=== PATIENT | female | born 1940 | race Caucasian/White ===

== ENCOUNTER 2018-08-28 11:05 | Inpatient (IN) | payer OTHER ==
[~2018-08-28] VITALS: Ht 162.6 cm; Wt 55.8 kg
[~2018-08-28 11:05] MED LIST: ALPRAZOLAM; AMLODIPINE BESY10 MG PO; ASPIR 8181 MG PO; CELEXA; CELEXA20 MG PO; HALOPERIDOL 2 MG2 M1 PO; LISINOPRIL10 MG PO; LOSARTAN-HCTZ1 EAC1 PO; NEURONTIN 300300 M1 PO; NORCO 5-325 TA1 EACH PO; OMEPRAZOLE 20 M20 M1 PO; PREMARIN; TYLENOL325 MG PO; XANAX 0.5 MG0.5 MG PO; Xanax; ZANAFLEX4 MG PO; [UNRECOGNIZED DRUG - REMARK]; [UNRECOGNIZED DRUG - REMARK]
[2018-08-28 11:11] VITALS: BP 208/100
[2018-08-28] MEDS ORDERED: VALIUM5 MG PO (11:25)
[2018-08-28] MEDS ORDERED: METFORMIN HCL500 MG PO (11:28)
[2018-08-28] MEDS ORDERED: XANAX 0.5 MG0.5 MG PO (11:29)
[2018-08-28] MEDS ORDERED: ESTRADIOL 1 MG T1 M1 PO (11:29)
[2018-08-28 11:45] LABS: ABSOLUTE BASOPHILS 0.1 thou/uL (0.0-0.2); ABSOLUTE EOSINOPHILS 0.3 thou/uL (0.0-0.7); ABSOLUTE LYMPHOCYTES 2.6 thou/uL (0.8-5.3); ABSOLUTE MONOCYTES 0.5 thou/uL (0.0-1.2); ABSOLUTE NEUTROPHILS 3.8 thou/uL (1.6-8.1); EOSINOPHILS 3.5 %; HEMATOCRIT 38.9 % (37.0-47.0); HEMOGLOBIN 12.8 gm/dL (12.0-15.0); LYMPHOCYTES 36.6 %; MCH 32.2 pg (26.0-34.0); MCHC 32.8 g/dL (28.0-37.0); MCV 98.1 fL (80.0-100.0); MONOCYTES 6.6 %; MPV 9.3 fl. (7.2-11.1); NUCLEATED RBCS 0 /100WBC; PLATELET COUNT* 270 thou/uL (150-400); POLYS 52.3 %; RBC 3.97 mil/uL (4.20-5.00); WBC 7.2 thou/uL (4.0-11.0)
[2018-08-28 11:56] LABS: ANION GAP 5 mmol/L (7-16); BUN 26 mg/dL (7-18); CHLORIDE 106 mmol/L (98-107); CO2 29 mmol/L (21-32); GLUCOSE 92 mg/dL (70-99); SODIUM 140 mmol/L (136-145)
[2018-08-28 12:00] LABS: APTT 27.9 Seconds (25.0-31.3); INR 0.9; PROTIME 9.7 Seconds (9.20-11.50)
[2018-08-28 12:03] LABS: POTASSIUM 4.5 mmol/L (3.5-5.1)
[2018-08-28 12:07] LABS: ALBUMIN 3.3 g/dL (3.4-5.0); ALKALINE PHOSPHATASE 73 U/L (46-116); LIPASE 166 U/L (73-393); NT-PRO BRAIN NAT PEPTIDE 1334 pg/mL (<300); SGOT 36 U/L (15-37); SGPT 29 U/L (30-65); TOTAL BILIRUBIN 0.3 mg/dL (<0.1-1.0); TOTAL PROTEIN 7.2 g/dL (6.4-8.2); TROPONIN-I LEVEL <0.06 ng/mL (<0.06)
[2018-08-28 14:04] VITALS: BP 179/63
[2018-08-28 15:54] VITALS: BP 202/92
[2018-08-28 19:20] VITALS: BP 175/78
[2018-08-29] VITALS (8 sets, daily range): BP systolic 141–208; BP diastolic 51–86
[2018-08-29 04:55] LABS: HEMOGLOBIN 12.3 gm/dL (12.0-15.0); MCH 31.7 pg (26.0-34.0); MCHC 32.4 g/dL (28.0-37.0); MPV 9.5 fl. (7.2-11.1); RBC 3.87 mil/uL (4.20-5.00); RDW-CV 13.2 % (10.5-14.5); WBC 7.9 thou/uL (4.0-11.0)
[2018-08-29 05:29] LABS: ALBUMIN 3.1 g/dL (3.4-5.0); CALCIUM 9.1 mg/dL (8.5-10.1); MAGNESIUM 1.9 mg/dL (1.8-2.4); POTASSIUM 4.2 mmol/L (3.5-5.1)
[2018-08-29 06:21] LABS: TOTAL BILIRUBIN 0.2 mg/dL (<0.1-1.0); TOTAL PROTEIN 6.3 g/dL (6.4-8.2)
--- NOTE | 2018-08-29 11:02 | EKG ---
[place] [address] ELECTROCARDIOGRAM REPORT Name: RAYMOND OBRIEN Room: [address] ADM IN [facility]#: [id number] Admission: 08/28/18 Attend Phys: Ivan Newberry, Discharge: Date of : 40 Report #: [id number] THIS REPORT FOR: //name// [facility] ED Test Date: 2018-08-28 Test Time: 11:13:19 Pat Name: RAYMOND OBRIEN Department: Room: [facility] Gender: F Weatherization Field Technician: Johanna DELACRUZ : 1940 Requested By: Tiff Jaramillo Order Number: [id number] MD: Man Valverde Measurements Intervals [place] Rate: 41 P: 67 TX: 202 QRS: 18 QRSD: 77 T: 36 QT: 481 QTc: 398 Interpretive Statements Sinus bradycardia septal q waves Supraventricular bigeminy Compared to ECG 07/01/2017 14:26:43 Atrial premature complex(es) now present Electronically Signed On 08-29-2018 11:01:55 CDT by Man Valverde [email or web address] <ELECTRONICALLY SIGNED> By: Man Valverde MD, FACC 08/29/18 1101 1113 1113 Man Valverde MD, FAC /EPI
[2018-08-30] VITALS (8 sets, daily range): BP systolic 130–168; BP diastolic 58–80
[2018-08-30 05:15] LABS: CHOLESTEROL 223 mg/dL (<200); HDL CHOLESTEROL 45 mg/dL (>40); LDL CHOLESTEROL 114 mg/dL (<100); TRIGLYCERIDE 323 mg/dL (<150); VLDL 65 mg/dL (<40)
[2018-08-30 05:23] LABS: SERUM ASSESSMENT CLEAR
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
--- NOTE | 2018-08-30 17:00 | 2DMMODE ---
[place] [address] 2 D/M-MODE ECHOCARDIOGRAM Name: RAYMOND OBRIEN Room: [address] IN [facility]#: [id number] Admission: 08/28/18 Attend Phys: Ivan Willard Discharge: Date of : 40 Date of Service: 08/30/18 1700 Report #: [id number] THIS REPORT FOR: //name// APPROVED REPORT Study performed: 08/30/2018 15:11:44 EXAM: Comprehensive 2D, Doppler, and color-flow Echocardiogram Patient Location: In-Patient Room #: [facility] Status: routine BSA: 1.72 HR: 56 bpm BP: 167/70 mmHg Rhythm: NSR Other Information Study Quality: Good Indications Hypertension/HDD 2D Dimensions IVSd: 8.53 (7-11mm) LVOT Diam: 19.08 (18-24mm) LVDd: 45.46 mm PWd: 8.70 (7-11mm) Ascending Ao: 30.37 (22-36mm) LVDs: 21.51 (25-40mm) Aortic Root: 29.89 mm Volumes Left Atrial Volume (Systole) LA ESV Index: 23.30 mL/m2 Aortic Valve AoV Peak Ed.: 1.41 m/s AO Peak Gr.: 7.97 mmHg LVOT Max P.48 mmHg AO Mean Gr.: 4.15 mmHg LVOT Mean P.74 mmHg LVOT Max V: 1.17 m/s AO V2 VTI: 28.15 cm LVOT Mean V: 0.76 m/s JOSE RAMON (VTI): 2.74 cm2 LVOT V1 VTI: 26.99 cm Mitral Valve E/A Ratio: 0.69 MV Decel. Time: 400.06 ms MV E Max Ed.: 0.46 m/[place] [address] 2 D/M-MODE ECHOCARDIOGRAM Name: RAYMOND OBRIEN Room: [address] IN [facility]#: [id number] Admission: 08/28/18 Attend Phys: Ivan Willard Discharge: Date of : 40 Date of Service: 08/30/18 1700 Report #: [id number] MV PHT: 116.02 ms MVA (PHT): 1.90 cm2 TDI E/Lateral E': 5.75 E/Medial E': 9.20 Medial E' Ed.: 0.05 m/s Lateral E' Ed.: 0.08 m/s Pulmonary Valve PV Peak Ed.: 0.92 m/s PV Peak Gr.: 3.38 mmHg Left Ventricle The left ventricle is normal size. There is normal LV segmental wall motion. There is normal left ventricular wall thickness. Left ventricular systolic function is normal. The left ventricular ejection fraction is within the normal range. LVEF is 55-60%. Grade I - abnormal relaxation pattern. Right Ventricle The right ventricle is normal size. The right ventricular systolic function is normal. Atria The left atrium size is normal. The right atrium size is normal. Aortic Valve Mild aortic valve sclerosis. No aortic regurgitation is present. There is no aortic valvular stenosis. Mitral Valve The mitral valve is normal in structure. Trace mitral regurgitation. No evidence of mitral valve stenosis. Tricuspid Valve The tricuspid valve is normal in structure. Unable to assess PA pressure. Trace tricuspid regurgitation. Pulmonic Valve The pulmonary valve is normal in structure. There is no pulmonic valvular regurgitation. Great Vessels The aortic root is normal in size. IVC is normal in size and collapses >50% [place] [address] 2 D/M-MODE ECHOCARDIOGRAM Name: RAYMOND OBRIEN Room: [address] IN [facility]#: [id number] Admission: 08/28/18 Attend Phys: Ivan Willard Discharge: Date of : 40 Date of Service: 08/30/18 1700 Report #: [id number] Pericardium There is no pericardial effusion. <Conclusion> LVEF is 55-60%. There is normal LV segmental wall motion. Grade I - abnormal relaxation pattern. Mild aortic valve sclerosis. There is no aortic valvular stenosis. No aortic regurgitation is present. Trace mitral regurgitation. <ELECTRONICALLY SIGNED> By: Chris Yanes MD, FACC 08/30/181699 99 99 Chris Yanes MD, FACC /INF
[2018-08-31] VITALS (7 sets, daily range): BP systolic 119–167; BP diastolic 55–75
[2018-09-01] VITALS (7 sets, daily range): BP systolic 140–176; BP diastolic 58–78
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
[2018-09-02 00:34] VITALS: BP 131/50
[2018-09-02 04:14] VITALS: BP 144/76
[2018-09-02 08:00] VITALS: BP 156/71
[2018-09-02 08:10] VITALS: BP 156/71
[2018-09-02 12:00] VITALS: BP 150/68
[2018-09-02] MEDS ORDERED: ASPIR 8181 MG PO (12:52)
[2018-09-02 13:12] VITALS: BP 150/68
--- NOTE | 2018-09-13 12:22 | CON ---
[address] [address] CONSULTATION Name: RAYMOND OBRIEN Room: [address] IN .R.#: [id number] Admission: 08/28/18 Attend Phys: Ivan Newberry, Discharge: 09/02/18 Date of : 40 Report #: [id number] THIS REPORT FOR: //name// CC: Rosemary Newberry MD DATE OF SERVICE: 08/29/2018 REFERRING PHYSICIAN: Ivan Newberry MD REASON FOR CONSULTATION: Dysphagia. IMPRESSION: 1. Dysphagia -- oropharyngeal versus esophageal with the patient having had an abnormal video swallow study earlier this year. 2. Recurrent falls of uncertain etiology. 3. Symptomatic bradycardia with orthostasis. RECOMMENDATIONS: At the present time, we will await the results of the patient's video swallow study. Her Speech Pathology is okay with her getting a barium swallow after a video swallow study that will be helpful for us. If, however, she is not a candidate for barium swallow with regular contrast that was used, she may need to undergo an upper endoscopy the following day. I have discussed the plans with the patient as well and she is agreeable to the same. HISTORY OF PRESENT ILLNESS: The patient is a very pleasant 77-year-old white female who had some issues with weakness and balance, who was admitted to hospital with complaints of orthostasis and multiple falls. Her other problem is shortness of breath. She denies ____ and this is not new for her. She has had previous video swallow studies done in the past which have revealed evidence for probable chronic dysphagia. She denies any worsening dysphagia to meats or salads, but has problems ____ when she eats it. She denies any complaints of any heartburn or indigestion. She denied problems with bowels or bowel frequency. She is referred to us for evaluation of her dysphagia. ALLERGIES: None. MEDICATIONS: Include hydrocodone, amlodipine, lisinopril. She also takes Celexa, Valium, metformin, estradiol, Xanax, Neurontin, Hyzaar, omeprazole. PAST MEDICAL HISTORY: Remarkable for hypertension. She has problems with anxiety, depression, diabetes. She has had [place] [address] CONSULTATION Name: CAMILLERAYMOND Nicole Room: [address]#: [id number] Admission: 08/28/18 Attend Phys: Ivan Newberry, Discharge: 09/02/18 Date of : 40 Report #: [id number] SOCIAL HISTORY: She does smoke, does not drink alcohol. FAMILY HISTORY: Negative. PHYSICAL EXAMINATION: GENERAL: Pleasant 77-year-old elderly female who is awake and alert. CARDIOPULMONARY: Revealed a regular rate and rhythm. LUNGS: Clear. ABDOMEN: Soft and not tender. No rebound or guarding. DISCUSSION: At the present time, the patient's issue seemed more oropharyngeal than anything else. We will await results of her video swallow study and make further recommendations thereafter. <ELECTRONICALLY SIGNED> By: French Bui DO 09/13/18 1222 1735 [id number] Bui DO /nt
== END 2018-09-02 16:55 | disposition home or self-care (01) | DRG 77 ==
LOC: M.ERS 11:05 → M.2W 13:26 → M.TBA-ER 13:26 → M.2W 14:14
PROVIDERS: Internal Medicine Cardiovascular Disease; Personal Emergency Response Attendant; Psychiatry & Neurology Neurology; ADMIT Family Medicine
DX: I67.4 Hypertensive encephalopathy (principal); J96.91 Respiratory failure, unspecified with hypoxia; I16.0 Hypertensive urgency; I70.1 Atherosclerosis of renal artery; I10 Essential (primary) hypertension; I49.9 Cardiac arrhythmia, unspecified; E78.5 Hyperlipidemia, unspecified; E11.40 Type 2 diabetes mellitus with diabetic neuropathy, unspecified; R29.6 Repeated falls; F17.210 Nicotine dependence, cigarettes, uncomplicated; J44.9 Chronic obstructive pulmonary disease, unspecified; N28.1 Cyst of kidney, acquired; R13.12 Dysphagia, oropharyngeal phase; Z90.710 Acquired absence of both cervix and uterus; Z98.49 Cataract extraction status, unspecified eye; Z90.49 Acquired absence of other specified parts of digestive tract; Z82.49 Family history of ischemic heart disease and other diseases of the circulatory system; Z79.899 Other long term (current) drug therapy

== ENCOUNTER 2018-10-20 14:33 | Inpatient (IN) | payer OTHER ==
[~2018-10-20] VITALS: Ht 162.6 cm; Wt 60.3 kg
[~2018-10-20 14:33] MED LIST changes: +ESTRADIOL 1 MG T1 M1 PO; +METFORMIN HCL500 MG PO; +VALIUM5 MG PO
[2018-10-20 14:43] VITALS: BP 154/77
[2018-10-20 15:20] LABS: ABSOLUTE BASOPHILS 0.1 thou/uL (0.0-0.2); ABSOLUTE EOSINOPHILS 0.1 thou/uL (0.0-0.7); ABSOLUTE LYMPHOCYTES 2.7 thou/uL (0.8-5.3); ABSOLUTE MONOCYTES 0.5 thou/uL (0.0-1.2); ABSOLUTE NEUTROPHILS 4.3 thou/uL (1.6-8.1); BASOPHILS 0.9 %; EOSINOPHILS 1.4 %; HEMATOCRIT 41.2 % (37.0-47.0); HEMOGLOBIN 13.9 gm/dL (12.0-15.0); LYMPHOCYTES 34.9 %; MCH 32.1 pg (26.0-34.0); MCHC 33.6 g/dL (28.0-37.0); MCV 95.5 fL (80.0-100.0); MONOCYTES 6.6 %; MPV 8.7 fl. (7.2-11.1); NUCLEATED RBCS 0 /100WBC; PLATELET COUNT* 256 thou/uL (150-400); POLYS 56.2 %; RBC 4.31 mil/uL (4.20-5.00); RDW-CV 12.8 % (10.5-14.5); WBC 7.7 thou/uL (4.0-11.0)
[2018-10-20 15:32] LABS: ANION GAP 11 mmol/L (7-16); BUN 34 mg/dL (7-18); CALCIUM 8.8 mg/dL (8.5-10.1); CHLORIDE 100 mmol/L (98-107); CO2 25 mmol/L (21-32); CREATININE 1.8 mg/dL (0.6-1.3); GLUCOSE 113 mg/dL (70-99); POTASSIUM 3.4 mmol/L (3.5-5.1); SODIUM 136 mmol/L (136-145)
--- NOTE | 2018-10-20 15:37 | NUR ---
AD NOTIFIED UPON PT RETURN FROM CT. PT CONNECTED TO MONITOR
[2018-10-20 15:42] LABS: ALBUMIN 3.7 g/dL (3.4-5.0); ALKALINE PHOSPHATASE 84 U/L (46-116); LIPASE 115 U/L (73-393); NT-PRO BRAIN NAT PEPTIDE 116 pg/mL (<300); SGOT 19 U/L (15-37); SGPT 27 U/L (30-65); TOTAL BILIRUBIN 0.3 mg/dL (<0.1-1.0); TOTAL PROTEIN 7.5 g/dL (6.4-8.2); TROPONIN-I LEVEL <0.06 ng/mL (<0.06)
[2018-10-20 16:11] LABS: URINE BILIRUBIN NEGATIVE (Negative); URINE BLOOD NEGATIVE (Negative); URINE CLARITY CLEAR; URINE COLOR YELLOW; URINE GLUCOSE-RANDOM NEGATIVE (Negative); URINE KETONES NEGATIVE (Negative); URINE LEUKOCYTES-REFLEX NEGATIVE (Negative); URINE NITRITE-REFLEX NEGATIVE (Negative); URINE PROTEIN NEGATIVE (Negative); URINE SPECIFIC GRAVITY 1.015 (1.005-1.030); URINE UROBILINOGEN 0.2 E.U./dl (0.2-1.0)
[2018-10-20 17:12] VITALS: BP 129/75
[2018-10-20 17:30] VITALS: BP 135/78
[2018-10-20 18:18] LABS: APTT 30.3 Seconds (25.0-31.3); PROTIME 10.3 Seconds (9.20-11.50)
[2018-10-20 20:10] VITALS: BP 125/66
[2018-10-21] VITALS (11 sets, daily range): BP systolic 108–140; BP diastolic 39–81
--- NOTE | 2018-10-21 04:47 | NUR ---
PT CARE ASSUMED AT 1930. SAT MAINTAINED IN RA. ALERT AND ORIENTED X4. CALL LIGHT WITHIN REACH AND BED IN LOW POSITION. DENIES ANY CHEST PAIN AND SOB. HOURLY ROUNDING DONE FOR PT SAFETY. PT STATED BACK PAIN, MEDICATION GIVEN PER EMAR.
[2018-10-21 05:10] LABS: HEMATOCRIT 34.7 % (37.0-47.0); MCH 31.9 pg (26.0-34.0); MCHC 33.1 g/dL (28.0-37.0); MCV 96.6 fL (80.0-100.0); MPV 9.4 fl. (7.2-11.1); RBC 3.59 mil/uL (4.20-5.00); RDW-CV 12.6 % (10.5-14.5); WBC 5.8 thou/uL (4.0-11.0)
[2018-10-21 05:22] LABS: HEMOGLOBIN 11.5 gm/dL (12.0-15.0)
[2018-10-21 05:38] LABS: CALCIUM 8.1 mg/dL (8.5-10.1); CREATININE 1.3 mg/dL (0.6-1.3); MAGNESIUM 2.1 mg/dL (1.8-2.4); POTASSIUM 3.9 mmol/L (3.5-5.1)
--- NOTE | 2018-10-21 09:46 | EKG ---
[place] [address] ELECTROCARDIOGRAM REPORT Name: LINGRAYMOND HARDING Nicole Room: [address] ADM IN [facility]#: [id number] Admission: 10/20/18 Attend Phys: Carina Baptiste MD Discharge: Date of : 40 Report #: [id number] THIS REPORT FOR: //name// [facility] ED Test Date: 2018-10-20 Test Time: 15:05:34 Pat Name: RAYMOND OBRIEN Department: Room: [facility] Gender: F Tourist Information Assistant: [facility] [place] 1940 Requested By: Tiff Wall Order Number: [id number] MD: Man Valverde Measurements Intervals [place] Rate: 80 P: PA: QRS: 18 QRSD: 91 T: 60 QT: 410 QTc: 473 Interpretive Statements sinus rhythm with consecutive pac's septal infarct, old Compared to ECG 08/28/2018 11:13:19 Sinus bradycardia no longer present Electronically Signed On 10-21-2018 9:46:30 CNC GRINDER by Man Valverde [email or web address] <ELECTRONICALLY SIGNED> By: Man Valverde MD, [facility] 10/21/18 0946 1505 1505 Man Valverde MD, [facility] /EPI
--- NOTE | 2018-10-21 11:33 | NUR ---
Pt is A&O. Pt resides at home with her dtr and MACKENZIE. Independent with ADLs, continues to clean and drive. Dtr completes the cooking. No DME. No hx of HH or SNF. Cardiology following. Goal is home at [place]. No needs anticipated.
--- NOTE | 2018-10-21 15:45 | NUR ---
ASSUMED PT CARE AT 0730 REPORT RECEIVED FROM NURSE. PT IS AOX4 LYING IN BED. SARRYTHMIA ON THE IMPORT/EXPORT AGENT. IV FLUID INFUISING ORDERED. NO CHEST PAIN AT TIME OF ASSESSMENT. DR JOSEPH HOANG. MANAGER RISK CAME IN NO ORDER RECEIVED. DR MARINELLI PAGED AND COMMUNICATED ABOUT MANAGER RISK VISIT. CAHRT CHECKED. MEDICINES ADMINISTERED ORDERED. WILL CONTINUE TO MONITOR
--- NOTE | 2018-10-21 18:19 | NUR ---
PT LEFT AT 1800 ACCOMPAINED BY DAUGHTER AND NURSING STAFF . SC INSTRUCTION GIVEN, EDUCATION GIVEN. PT STATES UNDERSTANDING.
== END 2018-10-21 17:43 | disposition home or self-care (01) | DRG 308 ==
LOC: M.ERS 14:33 → M.TBA-ER 16:31 → M.2W 16:31 → M.ERS 16:31 → M.2W 17:26
PROVIDERS: Physician Assistant; ADMIT Internal Medicine
DX: I48.91 Unspecified atrial fibrillation (principal); N17.0 Acute kidney failure with tubular necrosis; I10 Essential (primary) hypertension; R25.1 Tremor, unspecified; G62.9 Polyneuropathy, unspecified; Z90.710 Acquired absence of both cervix and uterus; Z87.891 Personal history of nicotine dependence; Z79.82 Long term (current) use of aspirin; Z79.899 Other long term (current) drug therapy; Z86.011 Personal history of benign neoplasm of the brain

== ENCOUNTER 2019-06-22 10:57 | Inpatient (IN) | payer OTHER ==
[~2019-06-22] VITALS: Ht 162.6 cm; Wt 65.3 kg
--- NOTE | ~2019-06-22 | EEG ---
[address] [address] EEG STUDY REPORT Name: CAMILLERAYMOND Nicole Room: [address]#: [id number] Admission: 06/22/19 Attend Phys: Obie Walker Discharge: Date of : 40 Report #: [id number] THIS REPORT FOR: //name// CC: Rosemary Salinas DATE OF SERVICE: 06/23/2019 This patient is being evaluated for the possibility of seizure. EEG was done by placing the electrodes by standard 10-20 system of electrode placement. Both referential and sequential montages were used for recording. Background activity in this patient's EEG is about 10 Hz and 30 microvolts. Muscle artifact is present, but the patient went to sleep, that is associated with bilaterally symmetrical sleep spindle and vertex sharp waves. Photic stimulation was unremarkable. Throughout the record, no active epileptiform activity was noticed. IMPRESSION: This patient's electroencephalogram is unremarkable. By: [id number] [id number] Hidalgo MD /nt
--- NOTE | ~2019-06-22 | CON ---
[facility] [address] [place] [address] CONSULTATION Name: RAYMOND OBRIEN Room: [address] IN ..#: [id number] Admission: 06/22/19 Attend Phys: Obie Walker Discharge: Date of : 40 Report #: [id number] THIS REPORT FOR: //name// CC: Rosemary Salinas DATE OF SERVICE: 06/22/2019 HISTORY OF PRESENT ILLNESS: This patient was evaluated in the Emergency Room and subsequently I saw the patient in the ICU. I discussed the patient with Dr. Leon in the Emergency Room. The patient apparently was doing well yesterday, but then said she cannot talk. She was having some unusual movement of the face. Family indicated that she had spells like this before, but not as severe. She has significant psychiatric problems and she is depressed according to them. REVIEW OF SYSTEMS: Indicate that she has this problem with talking, but she was able to drive. She has a very unusual movement of the face. She takes psychiatric medications. She has trouble with anxiety and depression and that was her relevant 14-point review of system. PAST MEDICAL HISTORY: Positive for depression and anxiety. FAMILY HISTORY: Negative for early age stroke. SOCIAL HISTORY: She does not smoke. PHYSICAL EXAMINATION: The patient's examination was carried out before and now she said her movement is better. Her speech is much improved. She can follow simple command. When distracted, she can move everything. I reviewed the patient's MRI and MRA. MRI does not show any acute changes. She did not cooperate with full MRI testing. She does have a meningioma, but that is stable. IMPRESSION: The patient's symptoms appear to be psychiatric. I will check an EEG to exclude any further pathology, but I will suggest a psychiatric consult in this patient. Her GFR is low and I do not want to proceed with CT angio even if the films are suboptimal on the MRA, but looks like large vessels are open and clinically it looks like psychiatric symptoms. Thank you very much [place] [address] CONSULTATION Name: RAYMOND OBRIEN Room: [address] IN [facility]#: [id number] Admission: 06/22/19 Attend Phys: Obie Walker Discharge: Date of : 40 Report #: [id number] TIME spent about 50 minutes, about half of it counseling and coordinating. By: [id number] Hidalgo MD /nt
[~2019-06-22 10:57] MED LIST changes: +COZAAR 25MG TAB25 MG PO; -LOSARTAN-HCTZ1 EAC1 PO
[2019-06-22 11:14] VITALS: BP 144/100
[2019-06-22 11:27] LABS: ABSOLUTE BASOPHILS 0.1 thou/uL (0.0-0.2); ABSOLUTE EOSINOPHILS 0.3 thou/uL (0.0-0.7); ABSOLUTE LYMPHOCYTES 2.8 thou/uL (0.8-5.3); ABSOLUTE MONOCYTES 0.5 thou/uL (0.0-1.2); ABSOLUTE NEUTROPHILS 4.2 thou/uL (1.6-8.1); BASOPHILS 1.3 %; EOSINOPHILS 3.9 %; HEMATOCRIT 41.3 % (37.0-47.0); HEMOGLOBIN 13.9 gm/dL (12.0-15.0); LYMPHOCYTES 35.8 %; MCH 31.6 pg (26.0-34.0); MCHC 33.7 g/dL (28.0-37.0); MCV 93.5 fL (80.0-100.0); MONOCYTES 6.2 %; MPV 9.1 fl. (7.2-11.1); NUCLEATED RBCS 0 /100WBC; PLATELET COUNT* 329 thou/uL (150-400); POLYS 52.8 %; RBC 4.42 mil/uL (4.20-5.00); RDW-CV 13.4 % (10.5-14.5); WBC 7.9 thou/uL (4.0-11.0)
[2019-06-22 11:34] LABS: ANION GAP 7 mmol/L (7-16); BUN 21 mg/dL (7-18); CALCIUM 9.1 mg/dL (8.5-10.1); CHLORIDE 101 mmol/L (98-107); CO2 31 mmol/L (21-32); CREATININE 1.4 mg/dL (0.6-1.3); GLUCOSE 106 mg/dL (70-99); POTASSIUM 3.2 mmol/L (3.5-5.1); SODIUM 139 mmol/L (136-145)
[2019-06-22 11:36] LABS: PROTIME 10.1 Seconds (9.20-11.50)
[2019-06-22 11:44] LABS: ALBUMIN 3.9 g/dL (3.4-5.0); ALKALINE PHOSPHATASE 103 U/L (46-116); SGOT 19 U/L (15-37); SGPT 21 U/L (30-65); TOTAL BILIRUBIN 0.3 mg/dL (<0.1-1.0); TOTAL PROTEIN 8.3 g/dL (6.4-8.2); TROPONIN-I LEVEL <0.06 ng/mL (<0.06)
[2019-06-22 14:23] VITALS: BP 147/76
[2019-06-22 14:40] LABS: URINE BILIRUBIN NEGATIVE (Negative); URINE BLOOD NEGATIVE (Negative); URINE CLARITY CLEAR; URINE COLOR YELLOW; URINE GLUCOSE-RANDOM NEGATIVE (Negative); URINE KETONES NEGATIVE (Negative); URINE LEUKOCYTES-REFLEX NEGATIVE (Negative); URINE NITRITE-REFLEX NEGATIVE (Negative); URINE PROTEIN NEGATIVE (Negative); URINE SPECIFIC GRAVITY <= 1.005 (1.005-1.030); URINE UROBILINOGEN 0.2 E.U./dl (0.2-1.0)
[2019-06-22 15:20] VITALS: BP 145/76
[2019-06-22 16:00] VITALS: BP 145/65
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
[2019-06-22 19:03] LABS: CREATININE 1.2 mg/dL (0.6-1.3); POTASSIUM 3.4 mmol/L (3.5-5.1)
[2019-06-22 20:00] VITALS: BP 145/56
[2019-06-23] VITALS (7 sets, daily range): BP systolic 145–193; BP diastolic 43–83
--- NOTE | 2019-06-23 05:44 | NUR ---
ASSUMED CARE AT 1910, ON ROOM AIR AND NO CHANGES IN MENTAL STATUS.NO DISTRESS NOTED.STAND BY ASSISTANCE WHEN GOING TO COMMODE.CONTINUE MONITORING AND TOWARDS GOALS.
[2019-06-23 08:36] LABS: HEMATOCRIT 39.4 % (37.0-47.0); MCH 31.8 pg (26.0-34.0); MCV 96.2 fL (80.0-100.0); MPV 10.1 fl. (7.2-11.1); RBC 4.09 mil/uL (4.20-5.00); RDW-CV 13.6 % (10.5-14.5); WBC 5.7 thou/uL (4.0-11.0)
[2019-06-23 08:41] LABS: CALCIUM 8.5 mg/dL (8.5-10.1); POTASSIUM 4.6 mmol/L (3.5-5.1)
--- NOTE | 2019-06-23 12:46 | NUR ---
Pt is A&O. Resides at home with her dtr and son in law. Independent, continues to clean and drive, dtr cooks. No DME. No hx of HH or SNF. Hx of outpt therapy. Goal is home at ga. Pt is tele status
--- NOTE | 2019-06-23 14:55 | NUR ---
I have reviewed the documentation by ADITHYA URRUTIA from TODAY to 06/23/19 and I concur with it. MARI REAGAN
--- NOTE | 2019-06-23 15:00 | NUR ---
PATIENT TRANSFERED TO ROOM 201 VIA WHEELCHAIR IN STABLE CONDITION. ALL BELONGINGS SENT WITH PATIENT. FAMILY NOTIFIED.
--- NOTE | 2019-06-23 15:52 | NUR ---
RECIEVED REPORT FROM PREVIOUS RN AROUND 1530. CONCUR WITH PREVIOUS ASSESSMENT. PT TRANSFERRED TO ROOM 201. ORIENTED TO ROOM. TELEPSYCH CONSULT INITIATED. NO OTHER CONCERNS AT THIS TIME. CLWR. WCTM.
[2019-06-24] VITALS: BP 180/57
[2019-06-24 04:00] VITALS: BP 166/66
[2019-06-24 04:14] LABS: HEMOGLOBIN 11.2 gm/dL (12.0-15.0); MCH 31.8 pg (26.0-34.0); MCV 96.4 fL (80.0-100.0); MPV 9.9 fl. (7.2-11.1); RBC 3.53 mil/uL (4.20-5.00); RDW-CV 13.5 % (10.5-14.5); WBC 5.9 thou/uL (4.0-11.0)
[2019-06-24 04:27] LABS: CHOLESTEROL 199 mg/dL (<200); HDL CHOLESTEROL 41 mg/dL (>40); LDL CHOLESTEROL 128 mg/dL (<100); TC:HDL 4.9 Ratio (Not establshd); TRIGLYCERIDE 152 mg/dL (<150); VLDL 30 mg/dL (<40)
[2019-06-24 04:46] LABS: SERUM ASSESSMENT CLEAR
[2019-06-24 04:52] LABS: CALCIUM 8.2 mg/dL (8.5-10.1); CREATININE 0.8 mg/dL (0.6-1.3); MAGNESIUM 1.8 mg/dL (1.8-2.4); POTASSIUM 4.4 mmol/L (3.5-5.1); TOTAL BILIRUBIN 0.2 mg/dL (<0.1-1.0); TOTAL PROTEIN 5.9 g/dL (6.4-8.2)
--- NOTE | 2019-06-24 05:34 | NUR ---
ASSUMED PT CARE AT APPROX 1930. PT IS AWAKE AND ORIENTED X4. VSS ON ROOM AIR. STORE CONSULTANT IN PLACE TRACING SR/SA w/ OCCASSIONAL PACs. ASSESSMENT DONE AND CHARTED. PT C/O BACK AND LEG PAIN PARTIALLY RELIEVED BY PAIN MEDS GIVEN PER JAN. PT IS ABLE TO SLEEP MOST OF THE NIGHT. CALL LIGHT WITHIN REACH. HOURLY ROUNDING DONE FOR PT SAFETY.
[2019-06-24 08:10] VITALS: BP 150/108
--- NOTE | 2019-06-24 09:27 | NUR ---
ASSUMED CARE OF PT THIS AM AROUND 0715- MEDICAL SURGERY NURSE IN PLACE ORDERED, TRACING SB- UPON ASSESSMENT PT NOTED TO BE RESTING IN BED, WATCHING TV- PT A&O X4- CONTINENT OF BOWEL AND BLADDER- UP AD-REGI IN ROOM, STEADY GAIT NOTED- LCTA, RESP EVEN AND UN-LABORED- VSS, O2 SAT 94% ON RA- ABD SOFT/ROUND/NON-TENDER, BS X4 QUADS- LAST BM REPORTED THIS AM- IV NOTED TO LEFT FA INTACT- GOOD PO INTAKE NOTED THIS AM WITH BREAKFAST- NIH NOTED AT 0 THIS AM- PT STATES HEADACHE THIS AM, PRN HYDROCODONE NOTED TO HAVE BEEN GIVEN- CALL LIGHT AND PERSONAL BELONGINGS WITH IN REACH- PT MAKES NEEDS KNOWN- ALLNEEDS MET AT THIS TIME-WCTM
[2019-06-24 10:34] VITALS: BP 150/108
[2019-06-24] MEDS ORDERED: ATORVASTATIN CA80 MG PO (11:19)
--- NOTE | 2019-06-24 11:44 | NUR ---
ORDERS RECEIVED FOR OKAY TO D/C TO HOME THIS SHIFT PER - IV TO LEFT FA D/C'D ALONG WITH ORCHARD MANAGER PRIOR TO D/C- D/C EDUCATION/TEACHING/NEEDED FOLLOW UP'S COMMUNICATED WITH VERBAL UNDERSTANDING NOTED PER PT- WRITTEN EDUCATION ALONG WITH SCRIPTS PROVIDED TO PT PRIOR TO D/C- ALL QUESTIONS AND CONCERNS ADDRESSED PRIOR TO D/C- BELONGINGS PACKED AND ACCOUNTED FOR PER PT- PT CURRENTLY DRESSED WITH BELONGINGS AWAITTING RIDE FOR D/C- ALL NEEDS MET AT THIS TIME-WCTM
[2019-06-24 12:00] VITALS: BP 206/61
== END 2019-06-24 12:14 | disposition home or self-care (01) | DRG 69 ==
LOC: M.ERS 10:57 → M.ICU 13:30 → M.TBA-ER 13:30 → M.ICU 15:12 → M.2W 06-23 15:02
PROVIDERS: Family Medicine; Personal Emergency Response Attendant; ADMIT Internal Medicine
DX: G45.9 Transient cerebral ischemic attack, unspecified (principal); N17.0 Acute kidney failure with tubular necrosis; R47.01 Aphasia; E87.6 Hypokalemia; I10 Essential (primary) hypertension; G62.9 Polyneuropathy, unspecified; G25.71 Drug induced akathisia; F32.9 Major depressive disorder, single episode, unspecified; F41.9 Anxiety disorder, unspecified; F17.210 Nicotine dependence, cigarettes, uncomplicated; F43.20 Adjustment disorder, unspecified; D32.9 Benign neoplasm of meninges, unspecified; Z90.710 Acquired absence of both cervix and uterus; Z79.899 Other long term (current) drug therapy

== ENCOUNTER 2020-01-13 07:44 | Inpatient (IN) | payer OTHER ==
[~2020-01-13] VITALS: Ht 160 cm; Wt 65.8 kg
[~2020-01-13 07:44] MED LIST changes: +ATORVASTATIN CA80 MG PO
[2020-01-13 07:54] VITALS: BP 181/56
[2020-01-13 08:41] LABS: ABSOLUTE BASOPHILS 0.1 thou/uL (0.0-0.2); ABSOLUTE LYMPHOCYTES 0.8 thou/uL (0.8-5.3); ABSOLUTE MONOCYTES 0.5 thou/uL (0.0-1.2); ABSOLUTE NEUTROPHILS 6.7 thou/uL (1.6-8.1); BASOPHILS 0.7 %; EOSINOPHILS 0.4 %; HEMATOCRIT 33.9 % (37.0-47.0); HEMOGLOBIN 11.5 gm/dL (12.0-15.0); LYMPHOCYTES 9.7 %; MCHC 33.9 g/dL (28.0-37.0); MCV 94.6 fL (80.0-100.0); MONOCYTES 6.6 %; MPV 9.1 fl. (7.2-11.1); NUCLEATED RBCS 0 /100WBC; PLATELET COUNT* 260 thou/uL (150-400); POLYS 82.6 %; RBC 3.58 mil/uL (4.20-5.00); RDW-CV 14.3 % (10.5-14.5); WBC 8.2 thou/uL (4.0-11.0)
[2020-01-13 08:49] LABS: CALCIUM 8.1 mg/dL (8.5-10.1); CREATININE 1.2 mg/dL (0.6-1.3); POTASSIUM 3.9 mmol/L (3.5-5.1)
[2020-01-13 08:53] LABS: APTT 28.2 Seconds (25.0-31.3)
[2020-01-13 09:00] LABS: ALBUMIN 3.3 g/dL (3.4-5.0); TOTAL BILIRUBIN 0.2 mg/dL (<0.1-1.0); TOTAL PROTEIN 6.8 g/dL (6.4-8.2)
--- NOTE | 2020-01-13 17:40 | 2DMMODE ---
[place] [address] 2 D/M-MODE ECHOCARDIOGRAM Name: RAYMOND OBRIEN Room: [address] IN [facility]#: [id number] Admission: 01/13/20 Attend Phys: Carina Baptiste, Discharge: Date of : 40 Date of Service: 01/13/20 1739 Report #: [id number] THIS REPORT FOR: cc: Rosemary Lanier Maggie M. DO Liston, Michael J. MD [facility] ~ APPROVED REPORT Study performed: 01/13/2020 14:43:52 EXAM: Comprehensive 2D, Doppler, and color-flow Echocardiogram Patient Location: In-Patient Room #: ER Status: routine BSA: 1.64 HR: 64 bpm BP: 181/56 mmHg Rhythm: NSR Other Information Study Quality: Good Indications ELEVATED BNP 2D Dimensions IVSd: 8.88 (7-11mm) LVOT Diam: 20.30 (18-24mm) LVDd: 42.12 mm PWd: 10.38 (7-11mm) Ascending Ao: 30.61 (22-36mm) LVDs: 27.44 (25-40mm) Aortic Root: 29.44 mm Volumes Left Atrial Volume (Systole) LA ESV Index: 30.40 mL/m2 Aortic Valve AoV Peak Ed.: 1.75 m/s AO Peak Gr.: 12.22 mmHg LVOT Max P.16 mmHg AO Mean Gr.: 6.86 mmHg LVOT Mean P.75 mmHg LVOT Max V: 1.34 m/s AO V2 VTI: 32.02 cm LVOT Mean V: 0.90 m/s JOSE RAMON (VTI): 2.42 cm2 LVOT V1 VTI: 23.94 [place] [address] 2 D/M-MODE ECHOCARDIOGRAM Name: RAYMOND OBRIEN Room: [address] IN [facility]#: [id number] Admission: 01/13/20 Attend Phys: Carina Baptiste, Discharge: Date of : 40 Date of Service: 01/13/20 1739 Report #: [id number] Mitral Valve E/A Ratio: 0.92 MV Decel. Time: 209.27 ms MV E Max Ed.: 0.66 m/s MV PHT: 60.69 ms MVA (PHT): 3.63 cm2 TDI E/Lateral E': 7.33 E/Medial E': 9.43 Medial E' De.: 0.07 m/s Lateral E' Ed.: 0.09 m/s Pulmonary Valve PV Peak Ed.: 1.14 m/s PV Peak Gr.: 5.20 mmHg Tricuspid Valve RAP Estimate: 5.00 mmHg TR Peak Gr.: 26.86 mmHg RVSP: 31.00 mmHg PA Pressure: 31.00 mmHg Left Ventricle The left ventricle is normal size. There is normal LV segmental wall motion. There is normal left ventricular wall thickness. Left ventricular systolic function is normal. LVEF is 65-70%. Transmitral Doppler flow pattern suggests impaired LV relaxation. Right Ventricle The right ventricle is normal size. The right ventricular systolic function is normal. Atria The left atrium size is normal. The right atrium size is normal. Aortic Valve Mild aortic valve sclerosis. No aortic regurgitation is present. There is no aortic valvular stenosis. Mitral Valve The mitral valve is normal in structure. Mild mitral regurgitation. No evidence of mitral valve stenosis. Tricuspid Valve The tricuspid valve is normal in structure. Trace tricuspid regurgitation. The RVSP is 30-35 [place] [address] 2 D/M-MODE ECHOCARDIOGRAM Name: RAYMOND OBRIEN Room: [address]#: [id number] Admission: 01/13/20 Attend Phys: Carina Baptiste, Discharge: Date of : 40 Date of Service: 01/13/20 1739 Report #: [id number] Pulmonic Valve The pulmonary valve is normal in structure. There is no pulmonic valvular regurgitation. Great Vessels The aortic root is normal in size. IVC is normal in size and collapses >50% with inspiration. Pericardium There is no pericardial effusion. <Conclusion> The left ventricle is normal size. There is normal left ventricular wall thickness. Left ventricular systolic function is normal. LVEF is 65-70%. Transmitral Doppler flow pattern suggests impaired LV relaxation. Mild aortic valve sclerosis. There is no aortic valvular stenosis. Mild mitral regurgitation. Trace tricuspid regurgitation. The RVSP is 30-35 mmHg. IVC is normal in size and collapses >50% with inspiration. <ELECTRONICALLY SIGNED> By: Charles Pedraza MD, FACC 01/13/20 1739 1739 1739 Charles Pedraza MD, FACC /INF
--- NOTE | 2020-01-13 17:42 | EKG ---
[place] [address] ELECTROCARDIOGRAM REPORT Name: RAYMOND OBRIEN Room: [place] [address] ADM IN [facility]#: [id number] Admission: 01/13/20 Attend Phys: Carina Baptiste, Discharge: Date of : 40 Date of Service: 01/13/20 0817 Report #: [id number] THIS REPORT FOR: //name// [facility] ED Test Date: 2020-01-13 Test Time: 08:17:00 Pat Name: RAYMOND OBRIEN Department: Room: [facility] Gender: F Warehouse Foreman: TS : 1940 Requested By: Mauricio Sánchez Order Number: [id number] MD: Charles Pedraza Measurements Intervals [place] Rate: 66 P: 69 NH: 175 QRS: 46 QRSD: 76 T: 63 QT: 408 QTc: 428 Interpretive Statements Sinus arrhythmia Anteroseptal infarct, age indeterminate Compared to ECG 10/20/2018 15:05:34 Sinus rhythm no longer present Myocardial infarct finding still present Electronically Signed On 01-13-2020 17:41:04 [employer]OOK by Charles Pedraza [email or web address] <ELECTRONICALLY SIGNED> By: Charles Pedraza MD, FAC 01/13/20 1741 08 6 Charles Pedraza MD, [facility] /EPI
[2020-01-13 20:35] VITALS: BP 181/56
[2020-01-13 20:50] VITALS: BP 136/76
[2020-01-13] MEDS ORDERED: HYDROCODON-ACE1 EAC5 PO (21:44)
[2020-01-14 00:36] VITALS: BP 119/50
[2020-01-14 04:32] VITALS: BP 120/48
[2020-01-14 05:09] LABS: HEMATOCRIT 36.1 % (37.0-47.0); HEMOGLOBIN 12.1 gm/dL (12.0-15.0); MCH 31.7 pg (26.0-34.0); MCHC 33.5 g/dL (28.0-37.0); MCV 94.7 fL (80.0-100.0); MPV 9.8 fl. (7.2-11.1); RBC 3.81 mil/uL (4.20-5.00); RDW-CV 14.5 % (10.5-14.5); WBC 4.2 thou/uL (4.0-11.0)
[2020-01-14 05:35] LABS: CALCIUM 8.3 mg/dL (8.5-10.1); CREATININE 1.5 mg/dL (0.6-1.3); MAGNESIUM 2.1 mg/dL (1.8-2.4); POTASSIUM 3.2 mmol/L (3.5-5.1)
[2020-01-14 08:00] VITALS: BP 156/52
[2020-01-14 12:00] VITALS: BP 126/43
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
[2020-01-14 16:00] VITALS: BP 132/54
[2020-01-14 19:50] VITALS: BP 152/68
[2020-01-15 00:24] VITALS: BP 122/40
[2020-01-15 04:15] VITALS: BP 131/46
[2020-01-15 05:22] LABS: HEMATOCRIT 34.4 % (37.0-47.0); HEMOGLOBIN 11.6 gm/dL (12.0-15.0); MCH 32.2 pg (26.0-34.0); MCHC 33.9 g/dL (28.0-37.0); MCV 95.2 fL (80.0-100.0); MPV 9.6 fl. (7.2-11.1); RBC 3.61 mil/uL (4.20-5.00); RDW-CV 14.6 % (10.5-14.5); WBC 8.8 thou/uL (4.0-11.0)
[2020-01-15 05:37] LABS: CALCIUM 8.3 mg/dL (8.5-10.1); CREATININE 1.7 mg/dL (0.6-1.3); MAGNESIUM 2.2 mg/dL (1.8-2.4); POTASSIUM 3.2 mmol/L (3.5-5.1)
[2020-01-15 07:55] VITALS: BP 135/60
[2020-01-15 12:00] VITALS: BP 129/44
[2020-01-15 16:00] VITALS: BP 129/34
[2020-01-15 20:00] VITALS: BP 137/51
[2020-01-16 00:15] VITALS: BP 152/63
[2020-01-16 03:58] LABS: HEMATOCRIT 35.1 % (37.0-47.0); HEMOGLOBIN 11.8 gm/dL (12.0-15.0); MCH 31.9 pg (26.0-34.0); MCHC 33.6 g/dL (28.0-37.0); MPV 9.6 fl. (7.2-11.1); RBC 3.69 mil/uL (4.20-5.00); RDW-CV 14.5 % (10.5-14.5); WBC 8.1 thou/uL (4.0-11.0)
[2020-01-16 04:00] VITALS: BP 117/60
[2020-01-16 04:35] LABS: ALBUMIN 2.9 g/dL (3.4-5.0); CALCIUM 8.7 mg/dL (8.5-10.1); CREATININE 1.4 mg/dL (0.6-1.3); MAGNESIUM 2.2 mg/dL (1.8-2.4); TOTAL BILIRUBIN 0.2 mg/dL (<0.1-1.0); TOTAL PROTEIN 6.3 g/dL (6.4-8.2)
[2020-01-16 08:00] VITALS: BP 157/53
[2020-01-16 12:00] VITALS: BP 129/58
[2020-01-16 16:00] VITALS: BP 135/51
[2020-01-16 20:00] VITALS: BP 155/76
[2020-01-17 00:23] VITALS: BP 154/74
[2020-01-17 04:00] VITALS: BP 129/75
[2020-01-17 16:22] LABS: INFLUENZA A ANTIGEN Positive (Negative); INFLUENZA B ANTIGEN Negative (Negative)
[2020-01-17 16:44] VITALS: BP 116/37
[2020-01-17 20:00] VITALS: BP 121/52
[2020-01-18 00:30] VITALS: BP 100/52
[2020-01-18 04:08] VITALS: BP 101/60
[2020-01-18 04:13] LABS: ABSOLUTE EOSINOPHILS 0.1 thou/uL (0.0-0.7); ABSOLUTE LYMPHOCYTES 2.7 thou/uL (0.8-5.3); ABSOLUTE MONOCYTES 0.8 thou/uL (0.0-1.2); ABSOLUTE NEUTROPHILS 6.2 thou/uL (1.6-8.1); BASOPHILS 0.2 %; EOSINOPHILS 1.1 %; HEMATOCRIT 34.7 % (37.0-47.0); HEMOGLOBIN 11.6 gm/dL (12.0-15.0); LYMPHOCYTES 27.8 %; MCH 31.6 pg (26.0-34.0); MCHC 33.3 g/dL (28.0-37.0); MCV 94.9 fL (80.0-100.0); MONOCYTES 7.7 %; MPV 8.8 fl. (7.2-11.1); NUCLEATED RBCS 0 /100WBC; PLATELET COUNT* 248 thou/uL (150-400); POLYS 63.2 %; RBC 3.66 mil/uL (4.20-5.00); RDW-CV 13.9 % (10.5-14.5); WBC 9.8 thou/uL (4.0-11.0)
[2020-01-18 04:33] LABS: CALCIUM 8.8 mg/dL (8.5-10.1); CREATININE 1.9 mg/dL (0.6-1.3); POTASSIUM 4.1 mmol/L (3.5-5.1)
[2020-01-18 08:00] VITALS: BP 121/53
[2020-01-18 13:45] VITALS: BP 127/42
[2020-01-19 04:09] LABS: ABSOLUTE MONOCYTES 0.6 thou/uL (0.0-1.2); ABSOLUTE NEUTROPHILS 9.8 thou/uL (1.6-8.1); BASOPHILS 0.4 %; EOSINOPHILS 0.1 %; HEMATOCRIT 29.5 % (37.0-47.0); LYMPHOCYTES 15.7 %; MCH 32.2 pg (26.0-34.0); MCHC 33.9 g/dL (28.0-37.0); MPV 9.5 fl. (7.2-11.1); NUCLEATED RBCS 0 /100WBC; PLATELET COUNT* 206 thou/uL (150-400); POLYS 78.8 %; RDW-CV 13.7 % (10.5-14.5); WBC 12.5 thou/uL (4.0-11.0)
[2020-01-19 04:47] LABS: CALCIUM 8.2 mg/dL (8.5-10.1); CREATININE 1.2 mg/dL (0.6-1.3)
[2020-01-19 08:10] VITALS: BP 143/105
[2020-01-19] MEDS ORDERED: CEFDINIR300 MG PO (12:04)
[2020-01-19] MEDS ORDERED: COZAAR 25MG TAB25 MG PO (12:04)
[2020-01-19] MEDS ORDERED: PROTONIX40 M1 PO (12:11)
[2020-01-19] MEDS ORDERED: PREDNISONE 10 M10 MG PO (12:11)
[2020-01-19 15:43] VITALS: BP 161/54
[2020-01-19 19:45] VITALS: BP 164/62
[2020-01-20 16:00] VITALS: BP 125/40
== END 2020-01-20 18:35 | disposition home health service (06) | DRG 682 ==
LOC: M.ERS 07:44 → M.TBA-ER 10:50 → M.3W 10:50 → M.2W 10:50 → M.3W 01-18 15:04
PROVIDERS: Emergency Medicine; Internal Medicine; ADMIT Internal Medicine
DX: N17.9 Acute kidney failure, unspecified (principal); J96.01 Acute respiratory failure with hypoxia; I50.33 Acute on chronic diastolic (congestive) heart failure; J44.1 Chronic obstructive pulmonary disease with (acute) exacerbation; J44.0 Chronic obstructive pulmonary disease with (acute) lower respiratory infection; I11.0 Hypertensive heart disease with heart failure; J10.1 Influenza due to other identified influenza virus with other respiratory manifestations; G57.93 Unspecified mononeuropathy of bilateral lower limbs; F32.9 Major depressive disorder, single episode, unspecified; F17.210 Nicotine dependence, cigarettes, uncomplicated; E78.5 Hyperlipidemia, unspecified; M54.9 Dorsalgia, unspecified; G89.29 Other chronic pain; S30.1XXA Contusion of abdominal wall, initial encounter; X58.XXXA Exposure to other specified factors, initial encounter; T45.515A Adverse effect of anticoagulants, initial encounter; Y92.230 Patient room in hospital as the place of occurrence of the external cause; Z90.49 Acquired absence of other specified parts of digestive tract; Z85.841 Personal history of malignant neoplasm of brain; Z90.710 Acquired absence of both cervix and uterus; Z79.82 Long term (current) use of aspirin; Z79.899 Other long term (current) drug therapy; Y93.89 Activity, other specified; Y92.89 Other specified places as the place of occurrence of the external cause; Y99.8 Other external cause status; Z72.89 Other problems related to lifestyle